=== PATIENT | female | born 1960 | race Caucasian/White ===

== ENCOUNTER 2016-06-17 10:47 | Inpatient (IN) | payer BC ==
[2016-06-17] MEDS ORDERED: METOCLOPRAMIDE 5 MG/ML 2 ML VIAL IVP STA (11:07)
[2016-06-17] MEDS ORDERED: HYDROmorphone 1 MG/ML 1 ML SYRINGE IVP STA ×2 (11:07→12:15)
[2016-06-17 11:30] LABS: Basophils # (A) 0.1 k/uL (0-0.2); Basophils % (A) 1 %; CH 31.7; CHCM 35.4; Eosinophils # (A) 0.6 k/uL (0-0.7); Eosinophils % (A) 9 %; HCT 42.2 % (34.0-46.0); HDW 2.93; HGB 14.9 gm/dL (11.4-16.0); Luc # (Auto) 0.12; Luc % (Auto) 2; Lymphocytes % (A) 32 %; MCH 31.8 pg (25.0-35.0); MCHC 35.4 g/dL (31.0-37.0); Mean Platelet Volume 7.5; Monocytes # (A) 0.2 k/uL (0-1.0); Monocytes % (A) 4 %; Neutrophils # (A) 3.3 k/uL (1.3-7.7); Neutrophils % (A) 53 %; RBC 4.69 m/uL (3.80-5.40); RDW 12.9 % (11.5-15.5); WBC 6.3 k/uL (3.8-10.6); WBC (Perox) 6.62
[2016-06-17 11:34] LABS: ALT 28 U/L (9-52); AST 28 U/L (14-36); Alkaline Phosphatase 76 U/L (38-126); Amylase 131 U/L (30-110); Anion Gap 11 mmol/L; Blood Urea Nitrogen 17 mg/dL (7-17); Calcium 9.5 mg/dL (8.4-10.2); Carbon Dioxide 27 mmol/L (22-30); Chloride 104 mmol/L (98-107); Glucose 106 mg/dL (74-99); Non-African American GFR(MDRD) >60 (>60 ml/min/1.73 sqM); Potassium 4.2 mmol/L (3.5-5.1); Sodium 142 mmol/L (137-145); Total Bilirubin 0.5 mg/dL (0.2-1.3); Total Protein 7.7 g/dL (6.3-8.2)
--- NOTE | 2016-06-17 11:44 | XR ---
EXAMINATION TYPE: XR chest 2V DATE OF EXAM: 06/17/2016 11:35 AM HISTORY: Shortness of breath. COMPARISON: None. TECHNIQUE: 2 views of the FINDINGS: Demonstrated are scattered senescent parenchymal change. There is no evidence for focal infiltrate. The heart is stable. Hilar and mediastinal structures are within normal limits. Degenerative changes are seen of the dorsal spine. IMPRESSION: 1. Chronic changes without evidence for acute pulmonary disease.
--- NOTE | 2016-06-17 11:45 | XR ---
EXAMINATION TYPE: XR abdomen 2V DATE OF EXAM: 06/17/2016 11:35 AM COMPARISON: NONE HISTORY: Pain TECHNIQUE: Single supine KUB image of the abdomen is obtained FINDINGS: Small bowel demonstrates no evidence for dilatation or air fluid levels. Gas and fecal material is seen in non-distended colon. No convincing evidence for pneumoperitoneum. There is evidence of left-sided nephrolithiasis. Calculus in the region of the left ga-pelvis coul d reflect phlebolith versus distal ureteral calculus. Correlate clinically. The lung bases are clear. The osseous structures are intact. IMPRESSION: 1. Overall nonobstructive bowel gas pattern. 2. There is evidence of left-sided nephrolithiasis. Calculus in the region of the left ga-pelvis co uld reflect phlebolith versus distal ureteral calculus. Correlate clinically.
[2016-06-17 11:50] LABS: Creatine Kinase 107 U/L (30-135)
[2016-06-17 11:52] LABS: Partial Thromboplastin Time 23.8 sec (22.0-30.0); Prothrombin Time 9.8 sec (9.0-12.0)
[2016-06-17 12:03] LABS: Creatine Kinase MB 0.6 ng/mL (0.0-2.4); Troponin I <0.012 ng/mL (0.000-0.034)
--- NOTE | 2016-06-17 12:14 | ED ---
General Adult HPI - General Chief complaint: Chest Pain Stated complaint: abd/back pain Time Seen by Provider: 06/17/16 10:59 Source: patient Mode of arrival: wheelchair Limitations: no limitations - Related Data Home Medications Medication Instructions Recorded Confirmed Fexofenadine HCl [Hamida Allergy] 180 mg PO DAILY 06/17/16 06/17/16 Allergies Allergy/AdvReac Type Severity Reaction Status Date / Time No Known Allergies Allergy Unverified 06/17/16 11:05 Review of Systems ROS Statement: Those systems with pertinent positive or pertinent negative responses have been documented in the HPI. ROS Other: All systems not noted in ROS Statement are negative. Past Medical History Additional Past Medical History / Comment(s): kidney stones History of Any Multi-Drug Resistant Organisms: None Reported Additional Past Surgical History / Comment(s): wisdom teeth Past Psychological History: No Psychological Hx Reported Smoking Status: Never smoker Past Alcohol Use History: None Reported Past Drug Use History: None Reported General Exam Limitations: no limitations Course Vital Signs 06/17/16 06/17/16 10:55 12:00 Temperature 97.5 F L Pulse Rate 67 65 Respiratory 18 16 Rate Blood Pressure 152/75 109/69 O2 Sat by Pulse 98 98 Oximetry EKG Findings - EKG Comments: EKG Findings:: EKG was done and reviewed at 1110 showing sinus bradycardia with marked sinus arrhythmia. No acute ST elevation no ectopy no ischemic changes. Rate 59, HI interval was 1:30 QRS [address] Emery Medical Decision Making - Medical Decision Making Medical decision making the patient's white count 6.3 hemoglobin 14.9 hematocrit of 42. INR 1.0, potassium 4.2 with a BUN 17 creatinine 0.75 GFR greater than 60. Glucose 106. Total bilirubin is normal at 0.5 amylase mildly elevated 131 lipase mildly elevated at 346. Chest x-ray was done and reviewed by radiologist his final impression is chronic changes without evidence for acute pulmonary disease. As read by Dr. Webb x-rays of the abdomen was done and reviewed by radiologist his final impression is overall nonobstructive bowel gas pattern. There is evidence of left-sided nephrolithiasis, calculus in the region of the left hemipelvis could reflect phlebolith versus distal ureteral calculus. Correlate clinically. As read by Dr. Webb. Ultrasound of the right upper quadrant was done and reviewed by radiologist his final impression is #1 gallstone including stone visualized in the neck of the gallbladder. #2 hepatic cysts. As read by Dr. Webb Patient be admitted to on-call general surgeon Dr. dr mondragon. I spoke with Dr. dr mondragon. - Lab Data Result diagrams: 06/17/16 11:00 06/17/16 11:00 Lab Results 06/17/16 06/17/16 06/17/16 Range/Units 11:00 11:00 11:00 WBC 6.3 (3.8-10.6) k/uL RBC 4.69 (3.80-5.40) m/uL Hgb 14.9 (11.4-16.0) gm/dL Hct 42.2 (34.0-46.0) % MCV 90.0 (80.0-100.0) fL MCH 31.8 (25.0-35.0) pg MCHC 35.4 (31.0-37.0) g/dL RDW 12.9 (11.5-15.5) % Plt Count 226 (150-450) k/uL Neutrophils % 53 % Lymphocytes % 32 % Monocytes % 4 % Eosinophils % 9 % Basophils % 1 % Neutrophils # 3.3 (1.3-7.7) k/uL Lymphocytes # 2.0 (1.0-4.8) k/uL Monocytes # 0.2 (0-1.0) k/uL Eosinophils # 0.6 (0-0.7) k/uL Basophils # 0.1 (0-0.2) k/uL PT (9.0-12.0) sec INR (<1.1) APTT (22.0-30.0) sec Sodium 142 (137-145) mmol/L Potassium 4.2 (3.5-5.1) mmol/L Chloride 104 (98-107) mmol/L Carbon Dioxide 27 (22-30) mmol/L Anion Gap 11 mmol/L BUN 17 (7-17) mg/dL Creatinine 0.75 (0.52-1.04) mg/dL Est GFR (MDRD) Af Amer >60 (>60 ml/min/1.73 sqM) Est GFR (MDRD) Non-Af >60 (>60 ml/min/1.73 sqM) Glucose 106 H (74-99) mg/dL Calcium 9.5 (8.4-10.2) mg/dL Magnesium 2.0 (1.6-2.3) mg/dL Total Bilirubin 0.5 (0.2-1.3) mg/dL AST 28 (14-36) U/L ALT 28 (9-52) U/L Alkaline Phosphatase 76 (38-126) U/L Total Creatine Kinase 107 (30-135) U/L CK-MB (CK-2) 0.6 (0.0-2.4) ng/mL CK-MB (CK-2) Rel Index 0.6 Troponin I <0.012 (0.000-0.034) ng/mL Total Protein 7.7 (6.3-8.2) g/dL Albumin 4.5 (3.5-5.0) g/dL Amylase 131 H (30-110) U/L Lipase 346 H (23-300) U/L Urine Color Urine Appearance (Clear) Urine pH (5.0-8.0) Ur Specific Powell (1.001-1.035) Urine Protein (Negative) Urine Glucose (UA) (Negative) Urine Ketones (Negative) Urine Blood (Negative) Urine Nitrite (Negative) Urine Bilirubin (Negative) Urine Urobilinogen (<2.0) mg/dL Ur Leukocyte Esterase (Negative) Urine WBC (0-5) /hpf Ur Squamous Epith Cells (0-4) /hpf Urine Mucus (None) /hpf 06/17/16 06/17/16 Range/Units 11:00 11:50 WBC (3.8-10.6) k/uL RBC (3.80-5.40) m/uL Hgb (11.4-16.0) gm/dL Hct (34.0-46.0) % MCV (80.0-100.0) fL MCH (25.0-35.0) pg MCHC (31.0-37.0) g/dL RDW (11.5-15.5) % Plt Count (150-450) k/uL Neutrophils % % Lymphocytes % % Monocytes % % Eosinophils % % Basophils % % Neutrophils # (1.3-7.7) k/uL Lymphocytes # (1.0-4.8) k/uL Monocytes # (0-1.0) k/uL Eosinophils # (0-0.7) k/uL Basophils # (0-0.2) k/uL PT 9.8 (9.0-12.0) sec INR 1.0 (<1.1) APTT 23.8 (22.0-30.0) sec Sodium (137-145) mmol/L Potassium (3.5-5.1) mmol/L Chloride (98-107) mmol/L Carbon Dioxide (22-30) mmol/L Anion Gap mmol/L BUN (7-17) mg/dL Creatinine (0.52-1.04) mg/dL Est GFR (MDRD) Af Amer (>60 ml/min/1.73 sqM) Est GFR (MDRD) Non-Af (>60 ml/min/1.73 sqM) Glucose (74-99) mg/dL Calcium (8.4-10.2) mg/dL Magnesium (1.6-2.3) mg/dL Total Bilirubin (0.2-1.3) mg/dL AST (14-36) U/L ALT (9-52) U/L Alkaline Phosphatase (38-126) U/L Total Creatine Kinase (30-135) U/L CK-MB (CK-2) (0.0-2.4) ng/mL CK-MB (CK-2) Rel Index Troponin I (0.000-0.034) ng/mL Total Protein (6.3-8.2) g/dL Albumin (3.5-5.0) g/dL Amylase (30-110) U/L Lipase (23-300) U/L Urine Color Yellow Urine Appearance Clear (Clear) Urine pH 5.5 (5.0-8.0) Ur Specific Powell 1.013 (1.001-1.035) Urine Protein Negative (Negative) Urine Glucose (UA) Negative (Negative) Urine Ketones Negative (Negative) Urine Blood Negative (Negative) Urine Nitrite Negative (Negative) Urine Bilirubin Negative (Negative) Urine Urobilinogen <2.0 (<2.0) mg/dL Ur Leukocyte Esterase Small H (Negative) Urine WBC 5 (0-5) /hpf Ur Squamous Epith Cells <1 (0-4) /hpf Urine Mucus Rare H (None) /hpf Disposition Clinical Impression: Cholelithiasis Disposition: ADMITTED IP TO THIS HOSP Condition: Serious
[2016-06-17 12:20] LABS: Appearance,Urine Clear (Clear); Bilirubin,Urine Negative (Negative); Glucose,Urine (UA) Negative (Negative); Ketones,Urine Negative (Negative); Leukocyte Esterase,Urine Small (Negative); Mucus,Urine Rare /hpf; Nitrite,Urine Negative (Negative); PH, Urine 5.5 (5.0-8.0); Particle Count 765; Protein,Urine Negative (Negative); Specific Gravity,Urine 1.013 (1.001-1.035); Squamous Epithelial Cell,Urine <1 /hpf (0-4); UA Billing (MACRO vs. MICRO) MICRO; Urobilinogen,Urine <2.0 mg/dL (<2.0); WBC,Urine 5 /hpf (0-5)
--- NOTE | 2016-06-17 13:13 | US ---
EXAMINATION TYPE: US abdomen limited DATE OF EXAM: 06/17/2016 12:57 PM COMPARISON: NONE CLINICAL HISTORY: Right upper quadrant pain. RUQ pain, nausea, history of kidney stones EXAM MEASUREMENTS: Liver Length: 17.8 cm Gallbladder Wall: 0.3 cm CBD: 0.6 cm Right Kidney: 10.0 x 4.2 x 5.0 cm Pancreas: portions obscured by overlying bowel content Liver: cystic area = 1.1 x 1.3 x 1.4cm Gallbladder: gallstones including stone visualized in neck of GB, GB wall upper limits of normal Evidence for sonographic Hudson's sign: patient on pain medication CBD: upper limits of normal Right Kidney: no evidence of hydronephrosis or mass IMPRESSION: 1.gallstones including stone visualized in neck of GB 2. Hepatic cyst.
[2016-06-17] MEDS ORDERED: HYDROmorphone 1 MG/ML 1 ML SYRINGE IV PRN (13:44)
[2016-06-17] MEDS ORDERED: ONDANSETRON 4 MG/2 ML VIAL IVP PRN (13:44)
[2016-06-17] MEDS ORDERED: NALOXONE 0.4 MG/ML 1 ML VIAL IV PRN (13:44)
[2016-06-17] MEDS: SODIUM CHLORIDE 0.9% 1,000 ML IV SCH ×2 (14:00→23:54)
--- NOTE | 2016-06-17 14:47 | P.GSHP ---
History of Present Illness H&P Date: 06/17/16 Chief Complaint: Abdominal pain Patient is a 55-year-old white female presenting to the emergency department with complaints of abdominal pain. Patient has a medical history significant for nephrolithiasis. Patient states that she woke up this morning with right upper quadrant pain described as bloating and pressure. Patient states that after she ate breakfast the pain progressively became worse radiating to her mid epigastric region and back just below her shoulder blades. Patient states she felt nauseous and sweaty but no vomiting. Patient states that her bowel movement this morning was a little looser than normal. No history of similar episodes in past. No history of recent illness, fevers, shortness of breath, chest pain, numbness or tingling, diarrhea or constipation. Patient denies dysuria, urgency, or hematuria. No history of hematochezia or melena. Patient states she had a colonoscopy many years ago that was described as normal. Patient denies recent antibiotic use. Patient states that she had her are currently camping in [place] but she lives in [place], [place]. Patient's primary care physician is Dr. Oscar Brock. Admission labs with amylase of 131 and lipase of 345. No evidence of leukocytosis. Hemoglobin stable at 14.9. KUB x-ray with evidence of overall nonobstructive bowel gas pattern and left-sided nephrolithiasis. Ultrasound of abdomen with evidence of gallstones including stone visualized in the neck of the gallbladder. Past Medical History Additional Past Medical History / Comment(s): kidney stones History of Any Multi-Drug Resistant Organisms: None Reported Additional Past Surgical History / Comment(s): wisdom teeth Past Psychological History: No Psychological Hx Reported Smoking Status: Never smoker Past Alcohol Use History: None Reported Past Drug Use History: None Reported Medications and Allergies Home Medications Medication Instructions Recorded Confirmed Type Fexofenadine HCl [Hamiad Allergy] 180 mg PO DAILY 06/17/16 06/17/16 History Allergies Allergy/AdvReac Type Severity Reaction Status Date / Time No Known Allergies Allergy Unverified 06/17/16 11:05 Surgical - Exam Vital Signs Temp Pulse Resp BP Pulse Ox 97.5 F L 67 18 152/75 98 06/17/16 10:55 06/17/16 10:55 06/17/16 10:55 06/17/16 10:55 06/17/16 10:55 GENERAL: Pt awake and alert, well-appearing, well-nourished, and in no acute distress. HEAD: Atraumatic, normocephalic. EYES: Pupils equal, round, and reactive to light, sclera anicteric, conjunctiva are normal. ENT: Oropharynx clear without exudates. Moist mucous membranes. NECK:Supple without lymphadenopathy or JVD. LUNGS: Breath sounds clear to auscultation bilaterally. No wheezes, rales, or rhonchi. HEART: Heart S1, S2, no S3 or S4. Regularly irregular. No murmurs, rubs or gallops. ABDOMEN: Soft, tenderness to right upper quadrant and epigastric area, nondistended, normoactive bowel sounds. No guarding, no rebound. No masses or organomegaly appreciated. EXTREMITIES: 2+ peripheral pulses. No edema. NEUROLOGICAL: Pt oriented x 3. No focal deficits noted. Strength and sensation grossly intact. PSYCH: Normal mood, normal affect. SKIN: Warm, dry, intact. No rashes or lesions. Results - Labs 06/17/16 11:00 06/17/16 11:00 - Imaging Chest x-ray: report reviewed Abdominal x-ray: report reviewed US - abdomen: report reviewed Assessment and Plan Plan: Impression: 1. Acute cholecystitis with cholelithiasis. 2. Nephrolithiasis. Plan: 1. Patient will undergo laparoscopic cholecystectomy tomorrow. Patient will be allowed clear liquid diet but nothing by mouth after midnight. Continue IV hydration. Continue supportive treatment and pain management. Continue GI and DVT prophylaxis. Repeat CBC, CMP, amylase and lipase in a.m. The above impression and plan have been discussed and directed by Dr. Campuzano. Winter YANCEY acting as scribe for Dr. Campuzano.
[2016-06-18] MEDS: SODIUM CHLORIDE 0.9% 1,000 ML IV SCH ×3 (04:06→21:01)
[2016-06-18 08:41] LABS: Basophils # (A) 0.1 k/uL (0-0.2); Basophils % (A) 1 %; CH 31.4; CHCM 34.4; Eosinophils # (A) 0.5 k/uL (0-0.7); Eosinophils % (A) 9 %; HCT 38.7 % (34.0-46.0); HDW 2.73; HGB 13.3 gm/dL (11.4-16.0); Luc # (Auto) 0.08; Luc % (Auto) 1; Lymphocytes # (A) 2.1 k/uL (1.0-4.8); Lymphocytes % (A) 35 %; MCH 31.5 pg (25.0-35.0); MCHC 34.3 g/dL (31.0-37.0); MCV 91.8 fL (80.0-100.0); Mean Platelet Volume 7.4; Monocytes # (A) 0.2 k/uL (0-1.0); Monocytes % (A) 3 %; Neutrophils # (A) 2.9 k/uL (1.3-7.7); Neutrophils % (A) 50 %; RBC 4.22 m/uL (3.80-5.40); RDW 13.1 % (11.5-15.5); WBC 5.9 k/uL (3.8-10.6); WBC (Perox) 6.05
[2016-06-18 08:56] LABS: ALT 26 U/L (9-52); AST 21 U/L (14-36); Alkaline Phosphatase 69 U/L (38-126); Amylase 92 U/L (30-110); Anion Gap 8 mmol/L; Blood Urea Nitrogen 9 mg/dL (7-17); Calcium 8.4 mg/dL (8.4-10.2); Carbon Dioxide 24 mmol/L (22-30); Chloride 111 mmol/L (98-107); Glucose 97 mg/dL (74-99); Non-African American GFR(MDRD) >60 (>60 ml/min/1.73 sqM); Potassium 4.3 mmol/L (3.5-5.1); Sodium 143 mmol/L (137-145); Total Bilirubin 0.7 mg/dL (0.2-1.3); Total Protein 6.2 g/dL (6.3-8.2)
[2016-06-18] MEDS: PANTOPRAZOLE 40 MG/10 ML VIAL IV SCH (09:15)
--- NOTE | 2016-06-18 11:02 | P.PN ---
Progress Note - Text The patient states he feels better today. Her right upper quadrant pain is improved. On exam is lesser stable. Her abdomen soft. Patient will undergo laparoscopic cholecystectomy today.
[2016-06-18] MEDS ORDERED: IV FLUID CONTINUATION 800 ML IV ONE (13:55)
[2016-06-18] MEDS ORDERED: MIDAZOLAM 2 MG/2 ML VIAL IV ONE (14:07)
[2016-06-18] MEDS ORDERED: HEPARIN SODIUM,PORCINE 5,000 UNIT/ML 1 ML VIAL SQ ONE (14:15)
[2016-06-18] MEDS ORDERED: GLYCOPYRROLATE 0.2 MG/ML 2 ML VIAL ONE (14:18)
[2016-06-18] MEDS ORDERED: PROPOFOL 10 MG/ML 20 ML VIAL IV ONE (14:18)
[2016-06-18] MEDS ORDERED: KETOROLAC 30 MG/ML 1 ML VIAL ONE (14:18)
[2016-06-18] MEDS ORDERED: ROCURONIUM BROMIDE 10 MG/ML 10 ML VIAL IV ONE (14:18)
[2016-06-18] MEDS ORDERED: SUCCINYLCHOLINE CHLORIDE 100 MG/5 ML SYR IV ONE (14:18)
[2016-06-18] MEDS ORDERED: NEOSTIGMINE 1 MG/ML 10 ML VIAL ONE (14:18)
[2016-06-18] MEDS ORDERED: fentaNYL (PF) 50 MCG/ML 2 ML AMP ONE (14:18)
[2016-06-18] MEDS ORDERED: LIDOCAINE 1% INJ 10MG/ML (20 ML MDV) ONE (14:18)
[2016-06-18] MEDS ORDERED: MIDAZOLAM 2 MG/2 ML VIAL ONE (14:18)
[2016-06-18] MEDS ORDERED: BUPIVACAIN-EPI 0.25%-1:200,000 30 ML VIAL SQ ONE ×2 (14:34→15:02)
[2016-06-18] MEDS ORDERED: NALOXONE 0.4 MG/ML 1 ML VIAL IV PRN (15:07)
[2016-06-18] MEDS ORDERED: LACTATED RINGERS 1,000 ML IV ONE (15:07)
[2016-06-18] MEDS ORDERED: HYDROmorphone 1 MG/ML 1 ML SYRINGE IVP PRN (15:07)
[2016-06-18] MEDS ORDERED: ACETAMINOPHEN TAB 325 MG TAB PO PRN (15:07)
--- NOTE | 2016-06-18 15:07 | P.OP ---
Date of Procedure: 06/18/16 Preoperative Diagnosis: Cholecystitis Postoperative Diagnosis: Cholecystitis Cholelithiasis Procedure(s) Performed: Laparoscopic cholecystectomy Anesthesia: CARMELINA Surgeon: Mau Campuzano Estimated Blood Loss (ml): 10 Pathology: other (Gallbladder) Condition: stable Disposition: PACU Description of Procedure: The patient was placed on the operating table. The patient received a general endotracheal tube anesthesia. The patients abdomen was prepped and draped in the usual sterile fashion. Through an infraumbilical stab incision, the fascia of the anterior abdominal wall was grasped with a pair of Kochers and then the Veress needle was placed in the peritoneal cavity. Position of the Veress needle was confirmed with positive drop test. The abdomen was then insufflated. After adequate insufflation, the 10 mm trocar was placed in the peritoneal cavity. Following this the laparoscope was placed in the peritoneal cavity. The patient was placed in the head-up, right side up position and then a 5 mm trocar was placed in the right lateral and right subcostal position under direct visualization. A 8 mm trocar was placed in the epigastric position. The gallbladder was grasped in the fundus and infundibulum. Traction on the gallbladder was placed in the lateral and the cephalad positions. The triangle of Calot was visualized.. The cystic duct was bluntly dissected until the union of the cystic duct and common bile duct was seen. The cystic duct was then divided and sealed with the Harmonic scissors. A PDS Endoloop was then placed throughout the cystic duct stump. The cystic artery divided and sealed with the Harmonic scissors. The gallbladder was then removed from the liver bed using Harmonic scissors. The gallbladder was then extracted through the epigastric port site. Operative field was checked for any bleeding spots and Harmonic scissors was used to coagulate the liver bed. The abdomen was irrigated. The trocars were removed. The skin was closed using interrupted 3-0 Vicryl suture. Dermabond dressing were applied. The patient tolerated the procedure well.
[2016-06-18] MEDS: HYDROmorphone 1 MG/ML 1 ML SYRINGE IVP ONE ×4 (15:15→15:39)
[2016-06-18 15:27] VITALS: RESP 16
[2016-06-18] MEDS: KETOROLAC 30 MG/ML 1 ML VIAL IVP SCH ×2 (19:05→20:51)
[2016-06-18] MEDS: HYDROcodone/APAP 5-325MG 1 EACH TAB PO PRN (19:22)
[2016-06-19] MEDS: KETOROLAC 30 MG/ML 1 ML VIAL IVP SCH ×2 (03:24→09:20)
[2016-06-19] MEDS: SODIUM CHLORIDE 0.9% 1,000 ML IV SCH (03:26)
[2016-06-19 07:42] VITALS: BP 95/61; PULSE 62; TEMP 98.1
[2016-06-19] MEDS: PANTOPRAZOLE 40 MG/10 ML VIAL IV SCH (09:11)
[2016-06-19] MEDS: HYDROcodone/APAP 5-325MG 1 EACH TAB PO PRN (09:16)
--- NOTE | 2016-06-19 18:10 | P.DS ---
Providers Date of admission: 06/17/16 13:44 Expected date of discharge: 06/19/16 Attending physician: Mau Campuzano Primary care physician: Physician Nonstaff Hospital Course: Patient is a 55-year-old white female presenting to the emergency department with complaints of abdominal pain. Patient has a medical history significant for nephrolithiasis. Ultrasound of abdomen with evidence of cholecystitis and cholelithiasis. Patient underwent laparoscopic cholecystectomy. Patient tolerated procedure well. Patient had an uneventful postoperative recovery. Patient was deemed stable for discharge to home with close follow-up in the outpatient setting. Discharge diagnoses: 1. Acute cholecystitis with cholelithiasis. 2. Nephrolithiasis. The above impression and plan have been discussed and directed by Dr. Campuzano. Winter YANCEY acting as scribe for Dr. Campuzano. Pertinent Studies: Chest x-ray; abdomen x-ray; abdomen ultrasound; EKG Procedures: Laparoscopic cholecystectomy Patient Condition at Discharge: Good Plan - Discharge Summary New Discharge Prescriptions: HYDROcodone/APAP 7.5-325MG [[place] 7.5-325] 1 tab PO Q6HR PRN #28 tab PRN Reason: Pain Discharge Medication List Fexofenadine HCl [Hamida Allergy] 180 mg PO DAILY 06/17/16 [History] HYDROcodone/APAP 7.5-325MG [[place] 7.5-325] 1 tab PO Q6HR PRN #28 tab 06/19/16 [ Rx] Follow up Appointment(s)/Referral(s): Nonstaff,Physician [Primary Care Provider] - 1-2 days Mau Campuzano MD [STAFF PHYSICIAN] - 06/26/16 3:00 pm Patient Instructions/Handouts: *Surgery [facility] - Laparoscopic Cholecystectomy Discharge Instructions, Laparoscopic Cholecystectomy (DC) Activity/Diet/Wound Care/Special Instructions: No heavy lifting, pushing, or pulling items greater than 10 pounds. Low fat diet . Shower daily, no soaking in bath tubs, pools, or hot tubs. No driving while taking pain medication. Notify surgeon with any signs or symptoms of infection, increased pain, or not tolerating diet. Discharge Disposition: HOME SELF-CARE
== END 2016-06-19 11:10 | disposition home or self-care (01) | DRG 419 ==
LOC: EC 10:47 → 6PED 13:44 → 3SUR 21:22
PROVIDERS: ADMIT Surgery; ATTEND Surgery
PROC: 0FT44ZZ Resection of Gallbladder, Percutaneous Endoscopic Approach (ICD-10-PCS; principal; 2016-06-18 15:45)
DX: K80.00 Calculus of gallbladder with acute cholecystitis without obstruction (principal); K76.89 Other specified diseases of liver; Z87.442 Personal history of urinary calculi; Z88.8 Allergy status to other drugs, medicaments and biological substances
CPT/HCPCS: 36415; 71020; 74020; 76705; 80053; 81001; 82150; 82550; 82553; 83690; 83735; 84484; 85025; 85610; 85730; 88304; 93005